=== PATIENT | female | born 1990 | race African-American/Black ===

== ENCOUNTER 2019-08-21 12:32 | Emergency (ER) | payer OTHER ==
[~2019-08-21] VITALS: Ht 157.5 cm; Wt 38.6 kg
[~2019-08-21 12:32] MED LIST: CHOL100030 PO; DIVA125T32 PO; ESCI-8 PO; FERR-89 PO
[2019-08-21] MEDS ORDERED: DIVA-76 PO (12:58)
[2019-08-21] MEDS ORDERED: CHOL100018 PO (12:58)
[2019-08-21] MEDS ORDERED: IBUPROFEN 800 MG TABLET PO ONE (15:30)
[2019-08-21] MEDS ORDERED: IBUPROFEN 600 MG TABLET PO ONE (15:30)
[2019-08-21 15:41] LABS: BASOPHILS % (AUTO) 0.9 % (0.0-2.0); EOSINOPHILS % (AUTO) 1.7 % (1.0-6.0); HEMATOCRIT 41.4 % (36-46); LYMPHOCYTES # (AUTO) 1.7 K/uL (1.0-4.8); LYMPHOCYTES % (AUTO) 21.7 % (22.0-44.0); MEAN CORPUSCULAR HEMOGLOBIN 22.9 pg (26.0-34.0); MEAN CORPUSCULAR HGB CONC 31.3 G/dL (31.0-37.0); MEAN CORPUSCULAR VOLUME 73 fL (80-100); MONOCYTES # (AUTO) 0.6 K/uL (0.1-1.0); MONOCYTES % (AUTO) 7.6 % (2.0-9.0); NEUTROPHILS # (AUTO) 5.3 K/uL (1.8-7.7); NEUTROPHILS % (AUTO) 68.1 % (40.0-70.0); PLATELET COUNT (AUTO) 199 K/uL (150-450); RED BLOOD CELL COUNT(AUTO) 5.67 MIL/uL (4.00-5.20); RED CELL DISTRIBUTION WIDTH 14.9 % (11.5-14.5)
[2019-08-21 16:00] LABS: ANION GAP 9 mmol/L (8-16); CARBON DIOXIDE 27 mmol/L (22-29); CHLORIDE 103 mmol/L (98-107); CREATININE 0.76 mg/dL (0.60-1.30); GLOMERULAR FILTR. RATE CALC > 60 mL/min (>60); GLUCOSE,RANDOM 81 mg/dL (70-110); POTASSIUM 4.6 mmol/L (3.5-5.1); SODIUM SERUM 139 mmol/L (136-145); UREA NITROGEN, BLOOD 9 mg/dL (7-18)
[2019-08-21 16:08] LABS: ALANINE AMINOTRANSFERASE 21 U/L (12-78); ALBUMIN 4.2 g/dL (3.4-5.0); ALKALINE PHOSPHATASE 38 U/L (46-116); ASPARTATE AMINOTRANSFERASE 15 U/L (15-37); BILIRUBIN,TOTAL 0.3 mg/dL (0.1-1.0); HCG,QUANTITATIVE < 1 mIU/mL (0-6); LIPASE 149 U/L (73-393)
[2019-08-21 17:11] LABS: APPEARANCE,URINE CLEAR (CLEAR); BILIRUBIN,URINE NEGATIVE (NEGATIVE); GLUCOSE, URINE (UA) NEGATIVE (NEGATIVE); KETONES,URINE NEGATIVE (NEGATIVE); LEUKOCYTE ESTERASE ,URINE NEGATIVE (NEGATIVE); NITRATE,URINE NEGATIVE (NEGATIVE); OCCULT BLOOD,URINE SMALL (NEGATIVE); PH,URINE 6.5 (5.0-8.0); PROTEIN,URINE NEGATIVE (NEGATIVE); UROBILINOGEN,URINE 0.2 mg/dL (<=1.0)
[2019-08-21 17:35] LABS: BACTERIA,URINE Rare /HPF (None Seen); RBC,URINE 0-2 /HPF (0-2); SQUAMOUS EPITHELIAL CELL,UR Few /LPF (None Seen); WBC,URINE 0-2 /HPF (0-5)
[2019-08-21 18:21] VITALS: BP 104/68
== END 2019-08-21 18:23 | disposition home or self-care (01) ==
LOC: EMS 12:34
DX: K59.00 Constipation, unspecified (principal); F32.9 Major depressive disorder, single episode, unspecified
CPT/HCPCS: 74176

== ENCOUNTER 2024-12-17 19:57 | Inpatient (IN) | payer MEDICAID, OTHER ==
[~2024-12-17] VITALS: Ht 157.5 cm; Wt 41.7 kg
[~2024-12-17 19:57] MED LIST changes: -CHOL100030 PO; +CHOL25TA4 PO; +DIVA-111 PO; -DIVA125T32 PO; -FERR-89 PO; +FERR325T27 PO
[2024-12-17 20:10] VITALS: O2SAT 100
[2024-12-17 21:01] LABS: PLATELET COUNT (AUTO) 196 K/uL (150-450); RED BLOOD CELL COUNT(AUTO) 5.20 MIL/uL (4.00-5.20); RED CELL DISTRIBUTION WIDTH 15.0 % (11.5-14.5); WHITE BLOOD COUNT (AUTO) 10.3 K/uL (4.5-11.0)
[2024-12-17 21:04] LABS: CALCIUM, TOTAL 8.9 mg/dL (8.8-10.5); CREATININE 0.48 mg/dL (0.60-1.30); GLOMERULAR FILTR. RATE CALC > 60 mL/min (>60); GLUCOSE,RANDOM 125 mg/dL (70-110); SODIUM SERUM 138 mmol/L (136-145); UREA NITROGEN, BLOOD 4 mg/dL (7-18)
[2024-12-17 21:25] LABS: BAND NEUTROPHILS % (MANUAL) 0 % (0-5)
[2024-12-17 21:26] LABS: BASOPHILS % (MANUAL) 1 % (0-2); LYMPHOCYTES % (MANUAL) 7 % (22-44); MONOCYTES % (MANUAL) 2 % (2-9); SEGMENTED NEUTROPHILS % 90 % (40-70)
[2024-12-17 21:28] LABS: RBC MORPHOLOGY COMMENT ABNORMAL RBC MORPH
[2024-12-17] MEDS ORDERED: ZOLPIDEM TARTRATE 10 MG TABLET PO PRN (22:45)
[2024-12-17 22:55] LABS: COVID AG,FIA SOURCE NASAL SWAB
[2024-12-17 23:17] LABS: SARS-COV2 (COVID) ANTIGEN,FIA Negative (Negative)
[2024-12-18 01:04] VITALS: BP 107/70; PULSE 88; RESP 16; TEMP 98.5; O2SAT 97
[2024-12-18 08:06] VITALS: BP 118/63; PULSE 79; RESP 16; TEMP 97.6; O2SAT 100
[2024-12-18 09:04] LABS: PLATELET COUNT (AUTO) 222 K/uL (150-450); RED BLOOD CELL COUNT(AUTO) 5.56 MIL/uL (4.00-5.20); RED CELL DISTRIBUTION WIDTH 15.0 % (11.5-14.5); WHITE BLOOD COUNT (AUTO) 9.9 K/uL (4.5-11.0)
[2024-12-18 09:09] LABS: RBC MORPHOLOGY COMMENT ABNORMAL RBC MORPH
[2024-12-18 09:36] LABS: ASPARTATE AMINOTRANSFERASE 13 U/L (15-37); CALCIUM, TOTAL 9.4 mg/dL (8.8-10.5); CHOL/HDL RATIO 3.0 (3.9-5.7); CREATININE 0.62 mg/dL (0.60-1.30); GLOMERULAR FILTR. RATE CALC > 60 mL/min (>60); GLUCOSE,RANDOM 97 mg/dL (70-110); LDL CHOL (CALC.) 140 mg/dL (0-130); SODIUM SERUM 145 mmol/L (136-145); TOTAL PROTEIN, SERUM 8.1 g/dL (6.4-8.2); UREA NITROGEN, BLOOD 9 mg/dL (7-18)
[2024-12-18] MEDS ORDERED: IBUPROFEN 400 MG TABLET PO PRN (10:15)
[2024-12-18] MEDS ORDERED: ALBUTEROL SULFATE HFA 90 MCG/PUFF 8 GM INHALER IH PRN (10:15)
[2024-12-18] MEDS ORDERED: ONDANSETRON 4 MG TABLET PO PRN (10:15)
[2024-12-18] MEDS ORDERED: LOPERAMIDE HCL 2 MG CAPSULE PO PRN (10:15)
[2024-12-18] MEDS ORDERED: NICOTINE 14 MG/24 HOUR PATCH TD PRN (10:15)
[2024-12-18] MEDS: DIVALPROEX SODIUM 250 MG DR TABLET PO SCH (10:15)
[2024-12-18] MEDS ORDERED: MAG HYDROX/ALUMINUM HYD/SIMETH ES 30 ML SUSPENSION UDCUP PO PRN (10:15)
[2024-12-18] MEDS: ESCITALOPRAM OXALATE 10 MG TABLET PO SCH (10:15)
[2024-12-18] MEDS ORDERED: MAGNESIUM HYDROXIDE SUSPENSION 30 ML UDCUP PO PRN (10:15)
[2024-12-18] MEDS ORDERED: ACETAMINOPHEN 325 MG TABLET PO PRN (10:15)
[2024-12-18] MEDS ORDERED: GuaiFENesin/D-METHORPHAN [SUGAR-FREE] 200-20MG/10 ML SYRUP UDCUP PO PRN (10:15)
[2024-12-18] MEDS ORDERED: PETROLATUM,WHITE 28 GM JELLY TP PRN (10:15)
[2024-12-18] MEDS ORDERED: DOCUSATE SODIUM 100 MG CAPSULE PO PRN (10:15)
[2024-12-18] MEDS: FERROUS SULFATE 325 MG EC TABLET PO SCH (16:57)
[2024-12-18 20:11] VITALS: BP 96/61; PULSE 78; RESP 16; TEMP 97.7; O2SAT 98
[2024-12-19] MEDS: CHOLECALCIFEROL (VIT D3) 1,000 UNITS [25 MCG] TABLET PO SCH (08:33)
[2024-12-19 13:32] VITALS: BP 100/59; PULSE 85; RESP 16; TEMP 98.4; O2SAT 98
[2024-12-19 20:02] VITALS: BP 100/63; PULSE 83; RESP 18; TEMP 98.1; O2SAT 97
[2024-12-20 08:12] VITALS: BP 103/60; PULSE 78; RESP 16; TEMP 98.1; O2SAT 100
[2024-12-20] MEDS ORDERED: DIVA-111 PO (10:56)
[2024-12-20] MEDS ORDERED: RISP-31 PO (10:56)
[2024-12-20] MEDS ORDERED: ESCI-8 PO (10:56)
[2024-12-20] MEDS: INFLUENZA VIRUS VACCINE TVS (6MO+) 2025-26/PF 45 MCG/0.5 ML SYRINGE IM. ONE (13:03)
== END 2024-12-20 18:08 | disposition home or self-care (01) | DRG 761 ==
LOC: EMS 19:57 → B3A 12-18 00:02
PROVIDERS: ADMIT Psychiatry & Neurology Psychiatry; ATTEND Psychiatry & Neurology Psychiatry
PROC: GZHZZZZ Group Psychotherapy (ICD-10-PCS; principal; 2024-12-18)
DX: F25.1 Schizoaffective disorder, depressive type (principal); E44.0 Moderate protein-calorie malnutrition; E55.9 Vitamin D deficiency, unspecified; D64.9 Anemia, unspecified; R01.1 Cardiac murmur, unspecified; F79 Unspecified intellectual disabilities; Z20.822 Contact with and (suspected) exposure to COVID-19; Z79.899 Other long term (current) drug therapy; Z68.1 Body mass index [BMI] 19.9 or less, adult
CPT/HCPCS: 80048; 80053; 80061; 83036; 84436; 84443; 84703; 85025; 90686; 99285; G0480